=== PATIENT | female | born 1965 | race Caucasian/White ===

== ENCOUNTER 2019-11-28 07:35 | Outpatient (CLI) | payer BC ==
--- NOTE | 2019-11-28 08:59 | MRI ---
MRI Lumbar Spine Noncontrast: HISTORY: Lumbar radiculopathy. Low back pain with radiation pain down left lateral hip. COMPARISON: None FINDINGS: The visualized retroperitoneal structures demonstrate a normal appearance. Conus medullaris is normal in morphology and terminates at the L1 level. There is an area of increased T1 and T2-weighted signal intensity seen in the L3 vertebral body proba luke related to small hemangioma. There is a tiny subcentimeter increased T2-weighted signal intensity focus seen in the T12 vertebral body definitely visualized on T1-weighted images. This may represent a tiny atypical hemangioma. L1-2: There is no disc bulge or disc herniation. Central spinal canal and neural foramina are patent. L2-3: There is no disc bulge or disc herniation. Central spinal canal and neural foramina are patent. L3-4: There is no disc bulge or disc herniation. Central spinal canal and neural foramina are patent. L4-5: There is no disc bulge or disc herniation. Central spinal canal and neural foramina are patent. Mild facet degenerative changes are seen. L5-S1: There is no disc bulge or disc herniation. Central spinal canal and neural foramina are patent . Facet degenerative changes are present. IMPRESSION: Facet degenerative changes in the lower lumbar spine, but no disc bulge or disc herniation is seen at any level. The central spinal canal and neural foramina are patent at all levels of the lumbar spine.
--- NOTE | 2019-11-28 09:11 | RAD ---
LUMBAR SPINE SERIES 4 VIEWS STANDING INCLUDING FLEXION AND EXTENSION: HISTORY: Back pain radiating down to the left hip. FINDINGS: Bones appear demineralized. Vertebral bodies are normal in height. Disk space height appears fairly well preserved. There are degenerative facet changes. Pedicles are intact. No spondylolisthesis a nd no abnormal motion in flexion or extension. IMPRESSION: Minimal arthritic changes of the spine. POS: [facility]
== END 2019-11-28 07:36 | disposition home or self-care (01) ==
LOC: TBSIIMAG 07:35
PROVIDERS: ATTEND Physician Assistant Surgical
DX: M47.26 Other spondylosis with radiculopathy, lumbar region (principal); M46.96 Unspecified inflammatory spondylopathy, lumbar region
CPT/HCPCS: 72110; 72148

== ENCOUNTER 2021-09-14 10:18 | Outpatient (CLI) | payer BC | END 2021-09-14 10:19 | disposition home or self-care (01) | LOC: TBSIIMAG 10:18 | PROVIDERS: ATTEND Specialist | DX: M54.14 Radiculopathy, thoracic region (principal); D18.09 Hemangioma of other sites | CPT/HCPCS: 72146 ==